=== PATIENT | female | born 1995 | race Caucasian/White ===

== ENCOUNTER 2017-06-05 16:14 | Emergency (ER) | payer OTHER ==
[~2017-06-05] VITALS: Ht 160 cm; Wt 56.8 kg
[2017-06-05 16:16] VITALS: BP 115/79; PULSE 95; RESP 20; O2SAT 100
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
[2017-06-05 19:02] LABS: BASOPHILS % (AUTO) 0.5 % (0-3); EOSINOPHILS % (AUTO) 0.9 % (0-5); MONOCYTES % (AUTO) 9.3 % (4-12); Mean Corpuscular Hemoglobin 28.4 pg (27.0-35.0); Mean Corpuscular Volume 84.3 fL (81-100); NEUTROPHILS % (AUTO) 60.3 % (40-74); Platelet Count 305 bil/L (150-400)
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
[2017-06-05 20:26] VITALS: BP 114/80; PULSE 91; RESP 16; O2SAT 100
== END 2017-06-05 20:20 | disposition home or self-care (01) ==
LOC: SED 16:14
DX: R45.851 Suicidal ideations (principal); Y93.9 Activity, unspecified; Y92.410 Unspecified street and highway as the place of occurrence of the external cause; Y99.8 Other external cause status